=== PATIENT | female | born 1945 | race Caucasian/White ===

== ENCOUNTER 2021-09-08 13:32 | Outpatient (CLI) | payer MEDICARE, BC, SELFPAY ==
--- NOTE | ~2021-09-08 | PE_ITS ---
EXAMINATION: PET skull to mid thigh DATE: 09/08/2021 15:42 INDICATION: Urothelial cancer TECHNIQUE: Blood glucose level was 112 mg/dL. 9.771 mCi of 18-fluorodeoxyglucose (18-FDG) was adminis tered i.v. Low dose computed tomography (CT) images were acquired from the base of the brain to the p roximal thighs for attenuation correction and anatomic localization. Positron emission tomography (PE T) images were acquired in the same distribution beginning 53 minutes after injection. Images includi ng fused PET/CT images were reconstructed in axial, coronal, and sagittal planes. Automated exposure control technique was employed. The dose-length product was 324.06mGy-cm. COMPARISON: None FINDINGS: Head/neck: There is symmetric increased activity in the oral cavity, palatine tonsils, parotid glands, submandi bular glands, laryngeal muscles and ocular muscles without CT correlate, likely physiologic. Asymmetr ic mild increased uptake along the right longus capitis muscle without radiologic correlate which is likely physiologic. No pathologically enlarged cervical lymphadenopathy or suspicious foci of increas ed FDG uptake in the visualized head or neck. Chest: Moderate emphysema. There are couple calcified nodules at the right lung base along with calcified ri ght hilar lymph nodes consistent with old granulomatous disease. No suspicious pulmonary nodules, pne umonia, pulmonary edema or pleural effusion. Heart size is normal. Atherosclerotic coronary artery ca lcifications. Additional atherosclerotic calcification along the normal caliber thoracic aorta. No pa thologically enlarged for FDG avid thoracic lymphadenopathy. Abdomen/pelvis/proximal thighs: Physiologic renal accumulation and excretion of FDG activity in the kidneys, bladder and along portio ns of ureters. There is mild left hydronephrosis with left intraureteral stent in place with loops fo rmed at the left renal pelvis and in the bladder. Bilateral nephrolithiasis with several small stones in the left kidney and lower pole of the right kidney measurement of which is limited by motion alvino fact. In addition there is a 4 mm and 2 mm left ureteral stones along side the ureteral stent. Normal degree and heterogenous pattern of increased uptake throughout the liver without radiologic correlat e or dominant FDG avid lesion. The gallbladder, pancreas, spleen and bilateral adrenal glands are nor mal. Mild to moderate uptake scattered throughout the bowels without radiologic correlate, also likel y physiologic. There are scattered colonic diverticulosis without adjacent from 3 cm to suggest acute diverticulitis. 1.5 cm coarsely calcified likely degenerative fibroid along the anterior uterine fun dus. No other abnormal foci of increased FDG uptake or pathologically enlarged lymphadenopathy in the abdomen, pelvis or proximal thighs. Diffuse body wall edema. Musculoskeletal: Moderate to severe spondylosis throughout the spine. No suspicious lytic, blastic or FDG avid bone le sions. IMPRESSION: 1. No evident metastatic disease. Primary malignancy is not identified although assessment at the kid neys, ureters and bladder is limited by normal excreted activity in the urine. 2. Bilateral nephrolithiasis including a couple stones in the proximal left ureter alongside a left i nternal ureteral stent which is in expected position. Mild left hydronephrosis. 3. Calcified uterine fibroid. Reviewed, dictated and finalized at location B. IMPRESSION: 1. No evident metastatic disease. Primary malignancy is not identified although assessment at the kidneys, ureters and bladder is limited by normal excreted a ctivity in the urine. 2. Bilateral nephrolithiasis including a couple stones in the proximal left ure ter alongside a left auditor internal
[2021-09-08 13:59] LABS: Glucose Point of Care 112 mg/dl (65-105)
== END 2021-09-08 13:33 | disposition home or self-care (01) ==
PROVIDERS: Visit Provider Urology
DX: C80.1 Malignant (primary) neoplasm, unspecified (principal); D25.9 Leiomyoma of uterus, unspecified; J43.9 Emphysema, unspecified; N20.2 Calculus of kidney with calculus of ureter
CPT/HCPCS: 78815; A9552